=== PATIENT | female | born 1960 | race Caucasian/White ===

== ENCOUNTER → 2017-07-04 15:22 | Outpatient (CLI) | payer MEDICARE, OTHER | END | disposition home or self-care (01) | LOC: D.MRI 07-01 11:00 | DX: M54.16 Radiculopathy, lumbar region (principal) ==

== ENCOUNTER → 2017-07-08 15:52 | Outpatient (CLI) | payer MEDICARE, OTHER | END | disposition home or self-care (01) | LOC: D.MAMMO 14:00 | DX: Z12.31 Encounter for screening mammogram for malignant neoplasm of breast (principal) ==

== ENCOUNTER → 2017-08-30 11:44 | Outpatient (CLI) | payer MEDICARE, OTHER | END | disposition home or self-care (01) | LOC: D.MRI 11:30 | DX: M54.2 Cervicalgia (principal); M54.6 Pain in thoracic spine ==

== ENCOUNTER → 2018-01-01 15:22 | Outpatient (CLI) | payer MEDICARE, OTHER | END | disposition home or self-care (01) | LOC: D.MAMMO 11:00 | DX: R92.8 Other abnormal and inconclusive findings on diagnostic imaging of breast (principal) ==

== ENCOUNTER → 2018-04-03 10:54 | Outpatient (CLI) | payer MEDICARE, OTHER | END | disposition home or self-care (01) | LOC: D.MRI 10:54 | DX: M54.2 Cervicalgia (principal) ==

== ENCOUNTER 2018-04-16 22:23 | Emergency (ER) | payer MEDICARE, OTHER ==
[2018-04-16 23:43] LABS: PRO BNP 92 pg/mL (0-125)
[2018-04-16 23:46] LABS: TROPONIN-I < 0.017 ng/mL (0.000-0.060)
== END 2018-04-16 23:58 | disposition home or self-care (01) ==
LOC: D.ER 22:23
PROVIDERS: Family Medicine
DX: M79.601 Pain in right arm (principal); M19.011 Primary osteoarthritis, right shoulder; F17.200 Nicotine dependence, unspecified, uncomplicated

== ENCOUNTER 2018-05-18 00:05 | Emergency (ER) | payer MEDICARE, OTHER ==
[~2018-05-18] VITALS: Ht 165.1 cm; Wt 86.4 kg
[2018-05-18 00:12] VITALS: Ht 165.1 cm; Wt 86.4 kg
[2018-05-18] MEDS ORDERED: OXYCONTIN10 MG PO (00:15)
[2018-05-18] MEDS ORDERED: NEURONTIN 300300 MG PO (00:16)
[2018-05-18] MEDS ORDERED: ATIVAN1 MG (00:16)
[2018-05-18 00:31] LABS: BASOPHILS 0.4 % (0-2); EOSINOPHILS 3.6 % (0-7); HEMATOCRIT 42.3 % (36.0-48.0); HEMOGLOBIN 13.8 g/dL (12-16); IMMATURE GRANULOCYTES 0.4 % (0-5); LYMPHOCYTES 27.5 % (15-50); MCH 33.3 pg (26.0-34.0); MCHC 32.6 g/dL (31.0-37.0); MCV 102.2 fL (80.0-100.0); MEAN PLATELET VOLUME 11.1 fL (7.4-10.4); MONOCYTES 6.4 % (2-11); NEUTROPHILS 61.7 % (40-80); PLATELET COUNT 171 10x3/uL (130-400); RBC 4.14 10x6/uL (4.00-5.40); RDW 13.7 % (11.5-14.5); WBC 7.3 10x3/uL (4.8-10.8)
[2018-05-18 00:37] LABS: INR 0.89 (0.85-1.17); PROTIME 11.7 SECONDS (11.6-15.0)
[2018-05-18 00:38] LABS: APTT 25.3 SECONDS (22.8-39.4)
[2018-05-18 00:45] LABS: ALBUMIN 3.6 g/dL (3.4-5.0); ALKALINE PHOSPHATASE 62 U/L (46-116); ALT (SGPT) 23 U/L (10-68); BILIRUBIN - TOTAL 0.12 mg/dL (0.2-1.3); CALC OSMOLALITY 285 mosm/kg (275-300); CALCIUM 8.6 mg/dL (8.5-10.1); CARBON DIOXIDE 28.2 mmol/L (21.0-32.0); CHLORIDE - SERUM 107 mmol/L (98-107); CREATINE KINASE 77 UL (21-215); CREATININE - SERUM 0.8 mg/dL (0.6-1.3); GLUCOSE 113 mg/dL (74-106); POTASSIUM - SERUM 4.4 mmol/L (3.5-5.1); PROTEIN - SERUM 6.9 g/dL (6.4-8.2); SODIUM 142 mmol/L (136-145); TROPONIN-I < 0.017 ng/mL (0.000-0.060); UREA NITROGEN 17 mg/dL (7-18); eGFR NON AFRICAN AMERICAN 78 mL/min (90-120)
[2018-05-18 03:25] VITALS: BP 168/98
== END 2018-05-18 03:26 | disposition home or self-care (01) ==
LOC: D.ER 00:05
PROVIDERS: Family Medicine
DX: R03.0 Elevated blood-pressure reading, without diagnosis of hypertension (principal); F17.200 Nicotine dependence, unspecified, uncomplicated

== ENCOUNTER 2018-09-15 21:58 | Emergency (ER) | payer MEDICARE, OTHER ==
[~2018-09-15] VITALS: Ht 165.1 cm; Wt 92.7 kg
[~2018-09-15 21:58] MED LIST: ATIVAN1 MG; NEURONTIN 300300 MG PO; OXYCONTIN10 MG PO
[2018-09-15 22:49] VITALS: BP 122/88; Ht 165.1 cm; Wt 92.7 kg
== END 2018-09-15 23:45 | disposition left against medical advice (07) ==
LOC: D.ER 21:58
DX: M79.605 Pain in left leg (principal); M79.604 Pain in right leg

== ENCOUNTER 2018-10-15 08:48 | Outpatient (CLI) | payer MEDICARE, OTHER ==
[~2018-10-15] VITALS: Ht 165.1 cm; Wt 94.5 kg
--- NOTE | ~2018-10-15 | OP ---
PATIENT NAME: ALYX TRAN MEDICAL RECORD: [id number] :58 LOCATION:D.[facility] ADMISSION DATE: SURGEON: VARSHA MUELLER MD DATE OF OPERATION: 10/15/2018 DATE OF SERVICE: 10/15/2018 PROCEDURES: 1. Left heart catheterization. 2. Selective coronary angiography. 3. Left ventriculogram. 4. Intravascular ultrasound. 5. Aortofemoral runoff. 6. Abdominal aortography. INDICATION: Claudication, peripheral vascular disease, angina, chest pain compatible with angina. PROCEDURE IN DETAIL: After informed consent was obtained and after detailed description of risks, benefits as well as alternative therapies, the patient elected to proceed with angiogram and heart catheterization. The left femoral area was prepped and draped in normal sterile fashion. Left femoral artery was cannulated via modified Seldinger technique with placement of 5-Croatian sheath. All catheters exchanged through this sheath. FINDINGS: The left ventriculogram was performed in standard 30-degree ROUSE view, reveals good cardiac wall motion throughout all segments. Overall ejection fraction estimated 60%. SELECTIVE CORONARY ANGIOGRAPHY: 1. Left main is with no significant angiographic disease. 2. Left anterior descending has mild irregularities proximally. Intravascular ultrasound reveals that there is only tortuosity. No stenosis greater than 20%. 3. Left circumflex has mild irregularities, but no flow-limiting stenosis. 4. Right coronary has mild irregularities, but no flow-limiting stenosis. Abdominal aortography was performed. The catheter was pulled down for aortofemoral runoff. FINDINGS: Abdominal aortography reveals no significant abdominal aortic disease, no dissection or aneurysm formation. RIGHT LEG: A. Iliac: The common internal and external iliacs have mild irregularities, but no flow-limiting stenosis. B. Femoral system: The common superficial and deep femoral have no significant disease. C. Popliteal and infrapopliteal vessels have no significant disease with good 3-vessel runoff to the foot. LEFT LEG: A. Iliac: The common internal and external iliacs have mild irregularities, but no flow-limiting stenosis. B. Femoral system: The common superficial and deep femoral have no significant disease. OPERATIVE REPORT [id number] ALYX TRAN C. Popliteal and infrapopliteal vessels have no significant disease with good 3-vessel runoff to the foot. OVERALL IMPRESSION: 1. No significant coronary artery disease is present. 2. No significant peripheral vascular disease is present. TRANSINT:[id number] Voice Confirmation ID: [id number] DOCUMENT ID: [id number] VARSHA MUELLER MD at 1718 CC: [id number] DICTATION DATE: 10/15/18 1123 ETCH OPERATOR SEMICONDUCTOR WAFERS: 10/15/18 1227 DEP CLI 10/15/[address] [address]
--- NOTE | ~2018-10-15 | HEMODYNAMI ---
PATIENT:ALYX TRAN MEDICAL RECORD: [id number] : 58 LOCATION:[facility] ADMISSION DATE: 10/15/18 Generatedon:10/15/201811:23 Patient name: ALYX TRAN Patient #: [id number] SSN: : 1960 Date of study: 10/15/2018 Page: Of Hemodynamic Procedure Report Patient Data Patient Demographics Procedure consent was obtained First Name: ALYX Gender: Female Last Name: CHELSEA : 1960 Middle Initial: VIANNEY Age: 57 year(s) Patient #: [id number] Race: Unknown Additional ID: [id number] Contact details Address: [address] [place] [address] State: [place] City: [facility] Zip code: [address] Past Medical History Allergies: No known allergies Admission Admission Data Admission Date: 10/15/2018 Admission Time: 8:48 Admit Source: Other Lab Results Lab Result Date: 10/15/2018 Lab Result Time: 0:00 Biochemistry Name Units Result Min Max BUN mg/dl 10 --(-*--)-- 7 18 Creatinine mg/dl 0.7 --(*---)-- 0.6 1.3 CBC Name Units Result Min Max Hemoglobin g/dl 14.5 --(*---)-- 13.5 17.5 Procedure Procedure Types Cath Procedure Diagnostic Procedure C [facility] w/Coronaries Peripheral Cath Diagnostic Procedure 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 Peripheral Procedures Cwvou-Rolcmkn-Xap-Off Procedure Description Procedure Date Procedure Date: 10/15/2018 Procedure Start Time: 11:08 Procedure End Time: 11:20 Procedure Staff Name Function Raoul Chavez MD Performing Physician Renetta Way RT Monitor Alex Handley RT Scrub Radha Malloy RN Nurse Procedure Data Cath Procedure Fluoroscopy Diagnostic fluoroscopy Total fluoroscopy Time: 2 time: 2 min min Diagnostic fluoroscopy Total fluoroscopy dose: 545 dose: 545 mGy mGy Contrast Material Contrast Material Type Amount (ml) Isovue 300 111 Entry Location Entry Primary Successful Side Size Upsize Upsize Entry Closure Succes sful Closure Location (Fr) 1 (Fr) 2 (Fr) Remarks Device Remarks Femoral Left 5 Fr 6 Fr Exoseal artery Short Estimated blood loss: 5 ml Diagnostic catheters Device Type Used For End Catheter Placement MULTIPACK Pigtail 5 Fr Procedure catheter MULTIPACK JL 4.0 5Fr Procedure catheter MULTIPACK 3DRC 5Fr Procedure catheter Procedure Complications No complications Procedure Medications Medication Administration Route Dosage Oxygen etCO2 Nasal cannula 2 l/min Heparin Flush Bag added to field 2 bags (1000units/500ml NS) 0.9% NaCl I.V. 100 ml/hr Lidocaine 2% added to field 20 Versed I.V. 3 mg Fentanyl I.V. 100 mcg Versed I.V. 3 mg Heparin Bolus I.V. 4000 units Fentanyl I.V. 100 mcg Versed I.V. 4 mg Fentanyl I.V. 100 mcg Hemodynamics Rest Heart Rate: 69 (bpm) Snapshots Pre Cath Intra NCS Post Cath Vital Signs Time Heart Resp SPO2 etCO2 NIBP (mmHg) Rhythm Pain Sedation Rate (ipm) (%) (mmHg) Status Level (bpm) 10:58:37 62 15 98 38.2 174/89(130) NSR 0 (11) 10(A) , No pain 11:04:05 60 19 100 26.9 143/76(114) NSR 0 (11) 10(A) , No pain 11:08:26 59 10 97 40.4 134/68(100) NSR 0 (11) 10(A) , No pain 11:12:48 72 8 96 52.4 128/76(115) NSR 0 (11) 10(A) , No pain 11:17:12 67 7 96 26.9 142/69(106) NSR 0 (11) 10(A) , No pain 11:22:56 67 6 99 38.1 112/60(85) NSR 0 (11) 10(A) , No pain Medications Time Medication Route Dose Verified Delivered Reason Notes Effectiveness by by 10:56:14 Oxygen etCO2 2 Raoul Radha Per physician Nasal l/min Scott Malloy cannula RN 10:56:22 Heparin Flush added 2 Raoul Radha used for Bag to bags Scott Malloy procedure (1000units/500ml field RN NS) 10:56:30 0.9% NaCl I.V. 100 Raolu Radha Per physician ml/hr Scott Malloy RN 10:59:55 Lidocaine 2% added 20ml Raoul Silveira for local to vial Scott Chavez MD anesthetic field 11:07:06 Versed I.V. 3 mg Raoul Radha for sedation Scott Malloy RN 11:07:18 Fentanyl I.V. 100 Raoul Radha for sedation mcg Scott Malloy RN 11:12:21 Versed I.V. 3 mg Raoul Radha for sedation cSott Malloy RN 11:12:44 Fentanyl I.V. 100 Raoul Radha for sedation verif ied mcg Scott Malloy with Dr. BRANDIE Chavez 11:15:28 Heparin Bolus I.V. 4000 Raoul Radha for verif ied units Scott Malloy anticoagulation with Dr. BRANDIE Chavez 11:18:36 Versed I.V. 4 mg Raoul Radha for sedation Scott Malloy RN 11:18:49 Fentanyl I.V. 100 Raoul Radha for sedation mcg Scott Malloy RN Procedure Log Time Note 10:22:38 Informed consent obtained and on chart 10:22:42 Admit Source: Other 10:22:55 Diagnostic Cath status Elective 10:22:56 Time tracking: Regular hours (M-F 7:00 - 5:00) 10:22:59 Plan of Care:Hemodynamics will remain stable., Cardiac rhythm will remain stable., Comfort level will be maintained., Respiratory function will remain adequate., Patient/ family verbilizes understanding of procedure., Procedure tolerated without complication., Recovers from procedure without complications.. 10:25:12 H&P Date Dictated: 10/13/2018 Within 30 days and on chart.. 10:25:28 Patient allergic to No known allergies 10:28:31 Lab Result : BUN 10 mg/dl 10:28:31 Lab Result : Creatinine 0.7 mg/dl 10:28:31 Lab Result : Hemoglobin 14.5 g/dl 10:44:55 Radha Malloy RN sent for patient. Start room use. 10:50:27 Patient received from Pre/Post Procedure Room to CCL 1 Alert and oriented. Tansferred to table in Supine position. 10:50:28 Warm blankets applied, and peter hugger turned on for patient comfort. 10:50:29 Correct patient and procedure confirmed by team. 10:50:29 ECG and BP/O2 sat monitors applied to patient. 10:56:14 Oxygen 2 l/min etCO2 Nasal cannula was administered by Radha Malloy RN; Per physician; 10:56:22 Heparin Flush Bag (1000units/500ml NS) 2 bags added to field was administered by Radha Malloy RN; used for procedure; 10:56:30 0.9% NaCl 100 ml/hr I.V. was administered by Radha Malloy RN; Per physician; 10:57:11 Vital chart was started 10:59:55 Lidocaine 2% 20ml vial added to field was administered by Raoul Chavez MD; for local anesthetic; 11:00:24 Baseline sample Acquired. 11:00:29 Rhythm: sinus rhythm 11:00:31 Baseline sample Acquired. 11:00:34 Full Disclosure recording started 11:00:34 Pre-procedure instructions explained to patient. 11:00:34 Pre-op teaching completed and patient verbalized understanding. 11:00:36 Family in patients room. 11:00:37 Patient NPO since Midnight. 11:00:41 Is patient on blood thinner?No 11:00:42 Patient diabetic? No. 11:00:47 Patient not . Patient is over age 54. 11:00:49 Previous problem with sedation/anesthesia? No ? 11:00:50 Snore? Yes 11:00:51 Sleep apnea? No 11:00:52 Deviated septum? No 11:00:53 Opens mouth fully? Yes 11:00:53 Sticks out tongue? Yes 11:00:56 Airway obstruction? No ? 11:00:59 Dentures? Yes IN TIGHT 11:01:13 IV patent on arrival in right hand with 0.9% NaCl at [facility]. 11:01:15 Lab results completed and on chart. 11:01:18 Bilateral groins area was prepped with chlora-prep and draped in sterile fashion 11:01:19 Alarms reviewed by R. N. 11:01:19 Sharps counted by scrub and verified by R.N. 11:01:23 Use device set Femoral Dx 11:01:24 ACIST Syringe (05765) opened to sterile field. 11:01:25 Bag Decanter (2001S) opened to sterile field. 11::26 ACIST Hand Control (59570) opened to sterile field. 11::26 ACIST Manifold (01850) opened to sterile field. 11::27 Tegaderm 4 x 4 (1626W) opened to sterile field. 11:01:28 Medline Cath Pack ([id number]) opened to sterile field. 11:01:29 DIAGNOSTIC WIRE .035 260cm J wire (538352) opened to sterile field. 11:01:30 DIAGNOSTIC Multipack 5Fr catheter set (CM1308) opened to sterile field. 11::31 SHEATH 5FR [place] (DCB683) opened to sterile field. 11:06:13 Pre procedure: right dorsailis pedis pulse 2+ Normal; easily identifiable; not easily obliterated 11:06:15 Pre procedure: left dorsailis pedis pulse 2+ Normal; easily identifiable; not easily obliterated 11::23 --------ALL STOP TIME OUT------ :23 Final Timeout: patient, procedure, and site verified with staff and physician. All members of the team are in agreement. 11::25 Bilateral groins site verified by team. ::28 Physical assessment completed. ASA score P 2 - A patient with mild systemic disease as per Raoul Chavez MD. 11:06:31 Sedation plan: IV Moderate Sedation Medication:Versed, Fentanyl 11:06:34 Zero performed for pressure channel P1 11::57 Zero performed for pressure channel P1 11::06 Versed 3 mg I.V. was administered by Radha Malloy RN; for sedation; ::18 Fentanyl 100 mcg I.V. was administered by Radha Malloy RN; for sedation; 11:07:39 Procedure started. 11:08:17 Local anesthetic to left femerol artery with Lidocaine 2% by Raoul Chavez MD.INITIAL ACCESS ONLY 11::08 A 5 Fr sheath was inserted into the Left Femoral artery 11::21 A MULTIPACK Pigtail 5 Fr catheter was advanced over the wire and used for Procedure. 11::28 LV gram done using ROUSE 11::33 Injector settings: Ml/sec: 10, Volume: 20, 11:09:57 EF : 50 % 11:10:10 PIGTAIL PULLED DOWN FOR AFRO 11:10:20 Abdominal angiogram w/ runoff was performed. 11:10:34 Left leg runoff performed. 11:10:58 Right leg runoff performed. 11:11:01 Catheter removed. 11:11:27 A MULTIPACK JL 4.0 5Fr catheter was advanced over the wire and used for Procedure. 11:12:21 Versed 3 mg I.V. was administered by Radha Malloy RN; for sedation; 11:12:44 Fentanyl 100 mcg I.V. was administered by Radha Malloy RN; for sedation; verified with Dr. Chavez 11:12:58 LCA angiography performed. 11:12:59 Catheter removed. 11:13:03 A MULTIPACK 3DRC 5Fr catheter was advanced over the wire and used for Procedure. 11:13:35 RCA angiography performed. 11:13:37 Catheter removed. 11:13:55 SHEATH 6FR [place] (MTF555) opened to sterile field. 11:13:55 INFLATOR Merit BasixCompak (FL8228) opened to sterile field. 11:13:56 CHOICE PT Extra Support 182cm wire ([id number]) opened to sterile field. 11:13:56 [place] Unga Eagleye IVUS Catheter (75552G) opened to sterile field. 11:13:56 GUIDE 6FR XBLAD 4.0 catheter ([id number]) opened to sterile field. 11:14:21 Sheath upsized to a 6 Fr Short. 11:14:53 6 Fr XBLAD 4 guide catheter was inserted over the wire 11:15:28 Heparin Bolus 4000 units I.V. was administered by Radha Malloy RN; for anticoagulation; verified with Dr. Chavez 11:15:49 CHOICE ES 182 wire advanced. 11:15:53 Wire advanced across lesion. 11:16:30 IVUS catheter advanced over wire. 11:16:32 IVUS pass to LAD lesion performed. 11:16:59 IVUS catheter removed over wire. 11:17:16 Catheter removed. 11:17:22 EXOSEAL 6Fr (EX600) opened to sterile field. 11:18:09 Sheath removed intact; hemostasis achieved with Exoseal to the Left Femoral artery. 11:18:15 Procedure ended.(Physican Out) 11:18:36 Versed 4 mg I.V. was administered by Radha Malloy RN; for sedation; 11:18:49 Fentanyl 100 mcg I.V. was administered by Radha Malloy RN; for sedation; 11:19:00 Fluoroscopy time 02.00 minutes. 11:19:06 Fluoroscopy dose: 545 mGy 11:19:06 Flurop Dose total: 545 11:19:11 Contrast amount:Isovue 300 111ml. 11:19:13 Sharps counted by scrub and verified by R.N. 11:19:17 Post-op/insertion site Left Femoral artery dressed using a 4 x 4 and Tegaderm. 11:19:22 Post-procedure physical assessment completed. ASA score P 2 - A patient with mild systemic disease as per Raoul Chavez MD. 11:19:25 Post procedure rhythm: sinus rhythm 11:19:28 Estimated blood loss: 5 ml 11:19:29 Post procedure instruction explained to patient.Patient verbalizes understanding. 11:19:30 Patient needs reinforcement of post procedure teaching. 11:20:09 Procedure and supply charges have been captured, reviewed, submitted and are correct. 11:20:12 Procedure Complication : No complications 11:20:13 Vital chart was stopped 11:20:14 See physician's report for complete and final results. 11:20:16 Report given to Pre/Post Procedure Room. 11:20:18 Patient transfered to Pre/Post Procedure Room with Stretcher. 11:20:20 Procedure ended. 11:20:20 Full Disclosure recording stopped 11:20:25 End room use (Document Last) Device Usage Item Name Manufacture Quantity Catalog Number Hospital Part Current Minim al Lot# / Charge Number Stock Stock Serial# Code ACIST Acist 1 30862 357715 894889 425768 20 Syringe Medical (58245) Systems Inc Bag Microtek 1 283813 21723 018622 5 Decanter Medical Inc. () ACIST Hand Acist 1 90294 706611 679790 361713 5 Control Medical (35851) Systems Inc ACIST Acist 1 08426 082509 036864 611068 5 Manifold Medical (48882) Systems Inc Tegaderm 4 3M 1 1626W 950392 126217 690850 5 x 4 (1626W) Medline Medline 1 [id number] 914149 38995 288825 5 Cath Pack ([id number]) DIAGNOSTIC [facility] 1 244898 073206 876036 771581 30 WIRE .035 260cm J wire (685724) DIAGNOSTIC Cardinal 1 OI5770 531672 16922 166116 30 Multipack Health 5Fr catheter set (BG6619) SHEATH 5FR Terumo 1 SMQ366 902209 597969 582537 40 [place] (RQH174) MULTIPACK Cardinal 1 859658 5 Pigtail 5 Health Fr catheter MULTIPACK Cardinal 1 338384 5 JL 4.0 5Fr Health catheter MULTIPACK Cardinal 1 537809 5 3DRC 5Fr Health catheter SHEATH 6FR Terumo 1 CCS878 258355 380914 806022 40 [place] (EUJ696) INFLATOR Merit 1 LE0750 480529 739803 007652 15 [facility] Medical BasixCompak (FL4002) CHOICE PT Chase 1 [id number] 733994 953290 483573 5 Extra Scientific Support 182cm wire ([id number]) [place] 1 27966H 953910 356952 937561 8 Unga Eagleye IVUS Catheter (06305B) GUIDE 6FR Cardinal 1 [id number] 230792 173360 905029 3 XBLAD 4.0 Health catheter (10597923) EXOSEAL 6Fr Cardinal 1 EX600 765668 406087 576704 10 (EX600) Health Signature Audit [place] Stage Time Signature Unsigned Intra-Procedure 10/15/[address] 11:23:46 AM RT(R) Signatures Monitor : Renetta Way Signature : RT Date : Time : [facility] [address] [place], [place] [address]
[2018-10-15] MEDS ORDERED: LOPRESSOR25 MG PO (09:06)
[2018-10-15] MEDS ORDERED: VALIUM10 MG PO (09:08)
[2018-10-15 09:35] VITALS: BP 142/75; Ht 165.1 cm; Wt 94.5 kg
[2018-10-15 09:44] LABS: BASOPHILS 0.4 % (0-2); HEMATOCRIT 43.3 % (36.0-48.0); HEMOGLOBIN 14.5 g/dL (12-16); IMMATURE GRANULOCYTES 1.1 % (0-5); LYMPHOCYTES 28.1 % (15-50); MCH 34.2 pg (26.0-34.0); MCHC 33.5 g/dL (31.0-37.0); MCV 102.1 fL (80.0-100.0); MEAN PLATELET VOLUME 11.1 fL (7.4-10.4); MONOCYTES 7.3 % (2-11); NEUTROPHILS 61.1 % (40-80); RBC 4.24 10x6/uL (4.00-5.40); WBC 5.6 10x3/uL (4.8-10.8)
[2018-10-15 09:51] LABS: CALC OSMOLALITY 276 mosm/kg (275-300); CALCIUM 8.2 mg/dL (8.5-10.1); CHLORIDE - SERUM 105 mmol/L (98-107); CREATININE - SERUM 0.7 mg/dL (0.6-1.3); GLUCOSE 85 mg/dL (74-106); SODIUM 140 mmol/L (136-145); UREA NITROGEN 10 mg/dL (7-18); eGFR NON AFRICAN AMERICAN > 90 mL/min (90-120)
[2018-10-15 09:52] LABS: POTASSIUM - SERUM 4.4 mmol/L (3.5-5.1)
[2018-10-15 10:06] LABS: PLATELET COUNT 266 10x3/uL (130-400)
[2018-10-15] MEDS ORDERED: NORVASC5 MG PO (12:07)
== END 2018-10-15 15:19 ==
LOC: D.CATH 08:48
PROVIDERS: Internal Medicine Interventional Cardiology
DX: R07.89 Other chest pain (principal); Z01.812 Encounter for preprocedural laboratory examination

== ENCOUNTER 2019-05-29 15:03 | Emergency (ER) | payer MEDICARE, OTHER ==
[~2019-05-29] VITALS: Ht 165.1 cm; Wt 95.5 kg
[~2019-05-29 15:03] MED LIST changes: +LOPRESSOR25 MG PO; +NORVASC5 MG PO; +VALIUM10 MG PO
[2019-05-29 15:20] VITALS: Ht 165.1 cm; Wt 95.5 kg
[2019-05-29] MEDS ORDERED: CYCLOBENZAPRINE10 MG PO (18:38)
[2019-05-29 18:54] VITALS: BP 153/74
== END 2019-05-29 18:55 | disposition home or self-care (01) ==
LOC: D.ER 15:03
DX: G89.29 Other chronic pain (principal); M79.602 Pain in left arm

== ENCOUNTER → 2019-11-20 11:09 | Outpatient (CLI) | payer MEDICARE, OTHER ==
[2019-05-29 15:20] VITALS: BMI 35.0
[~2019-11-20 11:09] MED LIST changes: +CYCLOBENZAPRINE10 MG PO
== END | disposition home or self-care (01) ==
LOC: D.NM 11:09
PROVIDERS: ATTEND Internal Medicine Gastroenterology
DX: R10.13 Epigastric pain (principal); R12 Heartburn; K59.00 Constipation, unspecified

== ENCOUNTER → 2019-12-07 09:37 | Outpatient (CLI) | payer MEDICARE, OTHER ==
[2019-05-29 15:20] VITALS: BMI 35.0
== END | disposition home or self-care (01) ==
LOC: D.RAD 11-25 09:30
PROVIDERS: ATTEND Internal Medicine Gastroenterology
DX: R10.13 Epigastric pain (principal); R12 Heartburn